=== PATIENT | female | born 2005 | race Caucasian/White ===

== ENCOUNTER 2023-08-24 18:55 | Emergency (ER) | payer SELFPAY ==
[~2023-08-24] VITALS: Ht 147.3 cm; Wt 67.6 kg
[2023-08-24] MEDS: ACETAMINOPHEN 500 MG TABLET PO ONE (21:32)
[2023-08-24] MEDS ORDERED: METOCLOPRAMIDE HCL 10 MG TABLET ONE (21:55)
[2023-08-24] MEDS: METOCLOPRAMIDE HCL 10 MG TABLET PO ONE (21:57)
[2023-08-24] MEDS ORDERED: NAPR-1009 PO (22:15)
[2023-08-24 22:36] VITALS: BP 117/74; O2SAT 97
== END 2023-08-24 22:36 | disposition home or self-care (01) ==
LOC: ER 18:56
DX: S06.0X0A Concussion without loss of consciousness, initial encounter (principal); M25.571 Pain in right ankle and joints of right foot; M79.671 Pain in right foot; W01.0XXA Fall on same level from slipping, tripping and stumbling without subsequent striking against object, initial encounter; Y93.89 Activity, other specified; Y92.89 Other specified places as the place of occurrence of the external cause; Y99.8 Other external cause status
CPT/HCPCS: 70450; 73600; 73620; A4606; A4663; A9150; J8597